=== PATIENT | male | born 1960 | race Caucasian/White ===

== ENCOUNTER 2016-07-03 07:16 | Emergency (ER) | payer BC, OTHER ==
[2016-07-03 07:36] VITALS: BP 111/69
--- NOTE | 2016-07-03 07:40 | UC ---
Respiratory Complaint HPI - HPI Summary HPI Summary: The patient comes in today for: 1. Cough and sore throat: Onset: 5 days Palliative/provocative: swallowing makes the sore throat worse as does coughing. Quality: Raw sore throat. Region: Throat and chest. Severity: 6/10 though he appears more like 4/10 Time: Constant. Associated symptoms: Rhinitis: Yellow mucous yesterday, but clear today. Cough: Non-productive. Dyspnea/wheezing: Present. Inhaler use: None. Fever: 100.8 yesterday. 99.8 today. Flu vaccine: Got. Body aches: Present. * - History of Current Complaint Chief Complaint: UCRespiratory Stated Complaint: FEVER/SORE THROAT/CONGESTION Time Seen by Provider: 07/03/16 07:31 Hx Obtained From: Patient - Allergies/Home Medications Allergies/Adverse Reactions: Allergies Allergy/AdvReac Type Severity Reaction Status Date / Time Cephalexin [From Keflex] Allergy Unknown Unknown Verified 07/03/16 07:22 Reaction Details Home Medications: Home Medications Ferrous Sulfate [Fe Tabs] 325 mg PO 07/03/16 [History] Vitamin B Complex CAP* [B Complex CAP*] 1 cap PO BID 07/03/16 [History Confirmed 07/03/16] PMH/Surg Hx/FS Hx/Imm Hx Previously Healthy: No - lymphedema. Endocrine History Of: Denies: Diabetes, Thyroid Disease, Hyperthyroidism, Hypothyroidism, Dyslipidemia Cardiovascular History Of: Reports: Hypertension Denies: Cardiac Disorders, Pacemaker/ICD, Myocardial Infarction, Congestive Heart Failure, Atrial Fibrillation, Deep Vein Thrombosis, Bleeding Disorders Respiratory History Of: Denies: COPD, Asthma, Bronchitis, Pneumonia, Pulmonary Embolism GI/ History Of: Reports: Gastroesophageal Reflux Denies: Ulcer, Gastrointestinal Bleed, Gall Bladder Disease, Kidney Stones, Diverticulitis, Renal Disease, Urosepsis Neurological History Of: Denies: TIA, CVA, Dementia, Seizures, Migraine Psychological History Of: Denies: Anxiety, Depression, Bipolar Disorder, Schizophrenia, Post Traumatic Stress Disorder Cancer History Of: Denies: Lung Cancer, Colorectal Cancer, Breast Cancer, Prostate Cancer, Cervical Cancer Other History Of: Negative For: HIV, Hepatitis B, Hepatitis C, Anticoagulant Therapy - Surgical History Surgical History: Yes Surgery Procedure, Year, and Place: SPINAL FUSION 1979. RT ANKLE 2008. LT RCT 2009 - Family History Known Family History: Negative: None, Cardiac Disease, Hypertension - Social History Occupation: Employed Full-time Alcohol Use: None Substance Use Type: None Smoking Status (MU): Never Smoked Tobacco - Immunization History Most Recent Influenza Vaccination: APR 2016 Review of Systems Constitutional: Negative Skin: Negative Eyes: Negative ENT: Sore Throat Respiratory: Cough Cardiovascular: Negative Gastrointestinal: Negative Genitourinary: Negative All Other Systems Reviewed And Are Negative: Yes Physical Exam Triage Information Reviewed: Yes Appearance: Well-Appearing - But he has nasal congestion affecting his voice., No Pain Distress, Well-Nourished Vital Signs: Initial Vital Signs Temp 99.4 F 07/03/16 07:24 Pulse 85 07/03/16 07:24 Resp 18 07/03/16 07:24 BP 111/69 07/03/16 07:24 Pulse Ox 98 07/03/16 07:24 Vital Signs Reviewed: Yes Eyes: Positive: Conjunctiva Clear. Negative: Discharge ENT: Positive: Hearing grossly normal, Nasal congestion. Negative: Pharyngeal erythema, Nasal drainage, TM bulging, TM dull, TM red, Tonsillar swelling, Tonsillar exudate Dental: Negative: Gross Decay/Caries @, Dental Fracture @ Neck: Positive: Supple, Nontender, No Lymphadenopathy. Negative: Nuchal Rigidity Respiratory: Positive: Chest non-tender, Lungs clear, No respiratory distress, No accessory muscle use. Negative: Crackles, Wheezing Cardiovascular: Positive: RRR, No Murmur Abdomen Description: Positive: Nontender, No Organomegaly, Soft. Negative: Distended, Guarding Musculoskeletal: Positive: Strength Intact, ROM Intact Neurological: Positive: Alert, Muscle Tone Normal Psychological: Positive: Age Appropriate Behavior, Consolable Skin: Negative: rashes, breakdown UC Diagnostic Evaluation - Laboratory O2 Sat by Pulse Oximetry: 98 Diagnostic Studies Comment: Strep test: (-). Respiratory Course/Dx - Course Course Of Treatment: Patient was told of his diagnostic options (strep testing, flu testing, CXR), and their value in his case. He is past the time limit for treating the flu and he is not interested in getting the test done to know what he may have. He was told that generally, we get CXR if there is a cough, fever and abnormal lung sounds; and with him not having fever at this time and no abnormal lung sounds, I generally would not recommend it. However, he was told that some people can have pneumonia seen on CXR but not meet criteria for getting a CXR. He did not want to get one--just the strep test. He was told that it was negative, but he wanted an antibiotic anyway for use in the future if he develops purulence. - Differential Dx/Diagnosis Differential Diagnosis/HQI/PQRI: Bronchitis, Laryngitis, Sinusitis Provider Diagnoses: Viral syndrome. Upper respiratory infection Discharge - Discharge Plan Condition: Stable Disposition: HOME Patient Education Materials: Pharyngitis (ED), Upper Respiratory Infection (ED) Referrals: Norberto Monroy, DO [Primary Care Provider] - 1 Week (Please see your primary care provider in about a week to see how well you are doing. If you get worse, please be seen sooner.)
== END 2016-07-03 08:15 | disposition home or self-care (01) ==
LOC: UCCORT 07:16
DX: B34.9 Viral infection, unspecified (principal); J06.9 Acute upper respiratory infection, unspecified; Z88.1 Allergy status to other antibiotic agents
CPT/HCPCS: 87651; 99211; G0463